=== PATIENT | male | born 1955 | race Caucasian/White ===

== ENCOUNTER 2018-05-08 13:39 | Inpatient (IN) ==
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
[2018-05-08 15:01] LABS: Baso % (Auto) 0.6 % (0.0-2.0); Eos # (Auto) 0.1 th/mm3 (0.0-0.4); Eos % (Auto) 1.8 % (0.0-4.0); Hematocrit 45.2 % (39.0-51.0); Hemoglobin 15.6 gm/dL (13.0-17.0); Lymph # (Auto) 1.2 th/mm3 (1.0-4.8); Lymph % (Auto) 15.1 % (9.0-44.0); Mean Corpuscular HGB Conc 34.5 % (32.0-36.0); Mean Corpuscular Hemoglobin 29.4 pg (27.0-34.0); Mean Corpuscular Volume 85.2 fL (80.0-100.0); Mean Platelet Volume 9.6 fL (7.0-11.0); Mono # (Auto) 0.6 th/mm3 (0.0-0.9); Mono % (Auto) 7.8 % (0.0-8.0); Neut # (Auto) 5.8 th/mm3 (1.8-7.7); Neut % (Auto) 74.7 % (16.0-70.0); Platelet Count 207 th/mm3 (150-450); Red Blood Count 5.31 mil/mm3 (4.50-5.90); Red Cell Distribution Width 14.2 % (11.6-17.2); White Blood Count 7.7 th/mm3 (4.0-11.0)
--- NOTE | 2018-05-08 15:08 | XR ---
EXAM DATE: 05/08/2018 2:53 PM EST AGE/SEX: 62 years / Male INDICATIONS: Patient presents with right sided chest pain and no history of cardiac issues. CLINICAL DATA: This is the patient's initial encounter. Patient reports that signs and symptoms have been present for 1 day and indicates a pain score of 6/10. MEDICAL/SURGICAL HISTORY: Hypertension. None. COMPARISON: No prior exams available for comparison. FINDINGS: Portable AP view of the chest demonstrates a normal-sized cardiac silhouette. No effusion, consolidat ion, or pneumothorax is identified. The bones and soft tissues demonstrate no acute finding. EKG line s overlie the patient. CONCLUSION: No acute cardiopulmonary abnormality is identified. Electronically signed by: Basilio Munguia MD Board Certified Radiologist 05/08/2018 3:07 PM EST
[2018-05-08 15:25] LABS: Alanine Aminotransferase 37 U/L (12-78); Albumin 3.7 g/dL (3.4-5.0); Anion Gap 8 meq/L (5-15); Blood Urea Nitrogen 13 mg/dL (7-18); Calcium 8.8 mg/dL (8.5-10.1); Carbon Dioxide 24.7 meq/L (21.0-32.0); Chloride 102 meq/L (98-107); Glomerular Filtration Rate 79 mL/min (>89); Glucose,Random 293 mg/dL (74-106); Lipase 112 U/L (73-393); Magnesium 1.9 mg/dL (1.5-2.5); Sodium 135 meq/L (136-145)
[2018-05-08 15:26] LABS: Aspartate Aminotransferase 31 U/L (15-37); Potassium 4.2 meq/L (3.5-5.1)
[2018-05-08 15:39] LABS: Alkaline Phosphatase 96 U/L (45-117); Creatine Kinase 230 U/L (39-308); Total Protein 7.6 g/dL (6.4-8.2); Troponin I 0.38 ng/mL (0.02-0.05)
--- NOTE | 2018-05-08 15:47 | CT ---
EXAM DATE: 05/08/2018 3:29 PM EST AGE/SEX: 62 years / Male INDICATIONS: Double vision. CLINICAL DATA: This is the patient's initial encounter. Patient reports that signs and symptoms have been present for 1 day and indicates a pain score of 0/10. MEDICAL/SURGICAL HISTORY: None. None. RADIATION DOSE: 56.35 CTDI (mGy) COMPARISON: No prior exams available for comparison. TECHNIQUE: CT of the head without contrast. Using automated exposure control and adjustment of the mA and/or kV according to patient size, radiation dose was kept as low as reasonably achievable to ob tain optimal diagnostic quality images. DICOM format image data is available electronically for revi ew and comparison. FINDINGS: Cerebrum: The ventricles are normal for age. No evidence of midline shift, mass lesion, hemorrhage or acute infarction. No extraaxial fluid collections are seen. Posterior Fossa: The cerebellum and brainstem are intact. The 4th ventricle is midline. The cerebe llopontine angle is unremarkable. Extracranial: The visualized portion of the orbits is intact. Skull: The calvaria is intact. No evidence of skull fracture. CONCLUSION: 1. Negative CT Head non contrast. Electronically signed by: Abhay Serrato MD Board Certified Radiologist 05/08/2018 3:46 PM EST
[2018-05-08 15:53] LABS: Creatine Kinase MB 3.9 ng/mL (0.5-3.6)
[2018-05-08] MEDS ORDERED: Bisacodyl 10 MG Supp RECTAL PRN (17:08)
[2018-05-08] MEDS ORDERED: Acetaminophen 325 MG Tablet PO PRN (17:08)
[2018-05-08] MEDS ORDERED: Dextrose 50% in Water 50 ML Vial IV.PUSH PRN (17:14)
[2018-05-08] MEDS ORDERED: Naloxone Inj 0.4 MG/ML Vial IV.PUSH PRN (18:19)
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
[2018-05-08] MEDS: Insulin NovoLOG Aspart Correctional Sugar Inj SQ SCH (21:54)
[2018-05-08] MEDS: Metoprolol Tartrate 25 MG Tablet PO SCH (23:04)
[2018-05-09] MEDS: Metoprolol Tartrate 25 MG Tablet PO SCH (09:15)
[2018-05-09] MEDS: Acetaminophen 325 MG Tablet PO PRN (09:22)
[2018-05-09] MEDS ORDERED: Acetaminophen 325 MG Tablet PO PRN (09:34)
[2018-05-09] MEDS ORDERED: Bisacodyl 10 MG Supp RECTAL PRN (09:34)
[2018-05-09] MEDS ORDERED: Gadobutrol PF 10 MMOL/10 ML Vial (for RAD) IV.SIG ONE (11:00)
--- NOTE | 2018-05-09 11:05 | MR ---
EXAM DATE: 05/09/2018 10:49 AM EST AGE/SEX: 62 years / Male INDICATIONS: . Diplopia. CLINICAL DATA: This is the patient's initial encounter. Patient reports that signs and symptoms have been present for 1 day and indicates a pain score of 0/10. MEDICAL/SURGICAL HISTORY: Diabetes mellitus type II. Hypertension. Tonsillectomy. COMPARISON: [facility] [place], CT HEAD W/O CONTRAST, 05/08/2018. . TECHNIQUE: Multiplanar, multisequence examination of the brain was performed without and with 10 ml G adavist (gadobutrol) contrast as a single exam dose. FINDINGS: Cerebrum: The ventricles are normal for age. No evidence of midline shift, mass lesion, hemorrhage or acute infarction. No extraaxial fluid collections are seen. The pituitary gland and suprasellar cistern are normal in configuration. White Matter: No significant signal abnormalities are seen in the white matter. Posterior Fossa: The cerebellum and brainstem are intact. The 4th ventricle is midline. The cerebel lopontine angle is unremarkable. The cerebellar tonsils are normal in position. Diffusion Imaging: No focal areas of restricted diffusion are seen. No evidence of acute infarction . Extracranial: The visualized portions of the orbits and paranasal sinuses are unremarkable. Post Contrast: No abnormal areas of parenchymal or dural enhancement. No evidence of blood-brain ba rrier breakdown. CONCLUSION: 1. Negative MR Brain with and without contrast. Electronically signed by: Abhay Serrato MD Board Certified Radiologist 05/09/2018 11:04 AM EST
[2018-05-09] MEDS ORDERED: Regadenoson Inj 0.4 MG/5 ML Syringe IV.PUSH ONE (11:44)
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
[2018-05-09] MEDS: Insulin NovoLOG Aspart Correctional Sugar Inj SQ SCH ×4 (13:01→20:16)
[2018-05-09] MEDS: Budesonide-Formoterol 160/4.5 MCG 6 GM Inhaler INH SCH ×2 (13:12→20:23)
[2018-05-09 13:36] LABS: Troponin I 0.5 ng/mL (0.02-0.05)
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
--- NOTE | 2018-05-09 16:40 | ECG ---
Date Performed: 05/08/2018 Time Performed: 14:02:21 PTAGE: 62 years EKG: SINUS TACHYCARDIA POSSIBLE LEFT ATRIAL ENLARGEMENT MODERATE ST DEPRESSION ABNORMAL ECG NO PREVIOUS TRACING DOCTOR: Carlos Cochran Interpretating Date/Time 05/09/2018 16:39:41
--- NOTE | 2018-05-09 16:49 | NM ---
EXAM DATE: 05/09/2018 4:37 PM EST AGE/SEX: 62 years / Male INDICATIONS:Angina. . Substernal chest pain. CLINICAL DATA: This is the patient's initial encounter. Patient reports that signs and symptoms have been present for 2 days and indicates a pain score of 3/10. MEDICAL/SURGICAL HISTORY: Hypertension. Diabetes mellitus type II. Asthma. Tonsillectomy. COMPARISON: No prior exams available for comparison. DOSE: 10 mCi Tc 99m Myoview at rest 30.1 mCi [id number] at stress 0.4 mg Lexiscan STRESS SYMPTOMS: None. EJECTION FRACTION: 67 % TECHNIQUE: The patient underwent pharmacologic stress with infusion of prescribed dose. Continuous ECG tracing was monitored during stress. Gated SPECT imaging was performed after stress and conventi onal SPECT imaging was performed at rest. The examination was performed on a SPECT/CT scanner, both attenuation and non-corrected datasets were reviewed. FINDINGS: Distribution: The maximum perfused segment at stress is in the septal wall. Perfusion Study: There is diminished perfusion along the lateral wall on the stress images. There a ppears to be some mild to moderate redistribution on the rest images along the lateral wall. Otherwis e, the rest of the perfusion images are grossly within normal limits. Gated Study: There are intact wall motion and wall thickening without hypokinetic or dyskinetic segm ents. The ejection fraction is calculated at 67%. RISK CATEGORY: Intermediate (1-3 % Annual Mortality Rate) CONCLUSION: 1. There appears to be some mild to moderate redistribution of tracer activity along the lateral wal l on the rest images suggesting ischemic myocardial changes. 2. No wall motion abnormalities are noted and the cardiac ejection fraction is within normal limits at 67%. Electronically signed by: Neri Aguirre MD Board Certified Radiologist 05/09/2018 4:48 PM EST
--- NOTE | 2018-05-09 17:23 | ECG ---
Date Performed: 05/08/2018 Time Performed: 18:21:32 PTAGE: 62 years EKG: Sinus rhythm MODERATE ST DEPRESSION Compared to previous tracing, sinus rate is slower ABNORMAL ECG PREVIOUS TRACING : 05/08/2018 14.02 DOCTOR: Carlso Cochran Interpretating Date/Time 05/09/2018 17:22:58
--- NOTE | 2018-05-09 17:38 | ECG ---
Date Performed: 05/08/2018 Time Performed: 21:11:10 PTAGE: 62 years EKG: Sinus rhythm MODERATE ST DEPRESSION Since the previous tracing, no significant change noted ABNORMAL ECG PREVIOUS TRACING : 05/08/2018 18.21 DOCTOR: Carlos Cochran Interpretating Date/Time 05/09/2018 17:37:33
--- NOTE | 2018-05-09 17:39 | ECG ---
Date Performed: 05/09/2018 Time Performed: 02:25:58 PTAGE: 62 years EKG: Sinus rhythm Inferior T wave changes are nonspecific Compared to previous tracing, previously seen ST changes are somewhat less prominent Borderline ECG PREVIOUS TRACING : 05/08/2018 21.11 DOCTOR: Carlos Cochran Interpretating Date/Time 05/09/2018 17:37:58
[2018-05-09] MEDS: Metoprolol Tartrate 50 MG Tablet PO SCH ×2 (18:20→20:15)
[2018-05-09] MEDS: amLODIPine 5 MG Tablet PO SCH (18:21)
[2018-05-09] MEDS: Isosorbide Mononitrate 60 MG ER 24HR Tablet (Imdur) PO SCH (18:22)
[2018-05-09] MEDS: Senna/Docusate Sodium 8.6/50 MG Tablet PO SCH (20:19)
[2018-05-09 20:53] LABS: Troponin I 0.38 ng/mL (0.02-0.05)
[2018-05-10 02:19] LABS: Baso # (Auto) 0.1 th/mm3 (0.0-0.2); Baso % (Auto) 0.9 % (0.0-2.0); Eos # (Auto) 0.2 th/mm3 (0.0-0.4); Hematocrit 41.7 % (39.0-51.0); Hemoglobin 14.3 gm/dL (13.0-17.0); Lymph # (Auto) 1.9 th/mm3 (1.0-4.8); Lymph % (Auto) 23.4 % (9.0-44.0); Mean Corpuscular HGB Conc 34.3 % (32.0-36.0); Mean Corpuscular Volume 84.5 fL (80.0-100.0); Mean Platelet Volume 9.2 fL (7.0-11.0); Mono # (Auto) 0.7 th/mm3 (0.0-0.9); Mono % (Auto) 8.8 % (0.0-8.0); Neut # (Auto) 5.2 th/mm3 (1.8-7.7); Neut % (Auto) 64.9 % (16.0-70.0); Platelet Count 224 th/mm3 (150-450); Red Blood Count 4.94 mil/mm3 (4.50-5.90)
[2018-05-10 02:48] LABS: Albumin 3.3 g/dL (3.4-5.0); Anion Gap 7 meq/L (5-15); Aspartate Aminotransferase 16 U/L (15-37); Blood Urea Nitrogen 17 mg/dL (7-18); Calcium 8.4 mg/dL (8.5-10.1); Carbon Dioxide 27.4 meq/L (21.0-32.0); Chloride 105 meq/L (98-107); Cholesterol 213 mg/dL (120-200); Glomerular Filtration Rate 89 mL/min (>89); Glucose,Random 238 mg/dL (74-106); Magnesium 2.1 mg/dL (1.5-2.5); Potassium 3.9 meq/L (3.5-5.1); Sodium 139 meq/L (136-145); Triglycerides 117 mg/dL (42-150)
[2018-05-10 02:57] LABS: Alanine Aminotransferase 27 U/L (12-78); Alkaline Phosphatase 79 U/L (45-117); Chol/HDL Ratio 5.66 Ratio; Creatine Kinase 119 U/L (39-308); Free T4 (Free Thyroxine) 1.09 ng/dL (0.76-1.46); HDL Cholesterol 37.6 mg/dL (40.0-60.0); LDL Cholesterol,Calculated 152 mg/dL (0-99); Phosphorus 3.7 mg/dL (2.5-4.9); Total Protein 6.5 g/dL (6.4-8.2); Troponin I 0.44 ng/mL (0.02-0.05)
[2018-05-10 08:08] VITALS: O2SAT 98
[2018-05-10 08:09] VITALS: RESP 17
[2018-05-10] MEDS: Insulin NovoLOG Aspart Correctional Sugar Inj SQ SCH ×2 (08:52→11:48)
[2018-05-10] MEDS: Acetaminophen 325 MG Tablet PO PRN (08:54)
[2018-05-10] MEDS: amLODIPine 5 MG Tablet PO SCH (08:56)
[2018-05-10] MEDS: Isosorbide Mononitrate 60 MG ER 24HR Tablet (Imdur) PO SCH (08:56)
[2018-05-10] MEDS: Senna/Docusate Sodium 8.6/50 MG Tablet PO SCH (08:56)
[2018-05-10] MEDS: Metoprolol Tartrate 50 MG Tablet PO SCH (08:57)
[2018-05-10] MEDS: Budesonide-Formoterol 160/4.5 MCG 6 GM Inhaler INH SCH (08:59)
[2018-05-10 11:37] VITALS: BP 125/63; TEMP 97.7
--- NOTE | 2018-05-10 14:05 | P.PNCA ---
Subjective Interval history: No left sided CP, dyspnea. Diplopia and lower right chest discomfort persist, no change. Medications and Allergies Active Medications: Active Medications Acetaminophen (Tylenol) 650 mg PO Q6HR PRN PRN Reason: PAIN SCALE 1 TO 5 Last Admin: 05/10/18 08:54 Dose: 650 mg Acetaminophen (Tylenol) 650 mg PO Q4H PRN PRN Reason: Temp > 100.4 Al Hydroxide/Mg Hydroxide (Milk Of Magnesia Liq) 30 ml PO Q12H PRN PRN Reason: Mild Constipation Albuterol (Ventolin Hfa Inh) 1 puff INH Q4H PRN PRN Reason: Respiratory Distress Last Admin: 05/09/18 20:15 Dose: 1 puff Amlodipine Besylate (Norvasc) 5 mg PO DAILY [facility] Last Admin: 05/10/18 08:56 Dose: 5 mg Aspirin (Ecotrin) 81 mg PO DAILY [facility] Last Admin: 05/10/18 08:57 Dose: 81 mg Bisacodyl (Dulcolax Supp) 10 mg RECTAL DAILY PRN PRN Reason: SEVERE CONSITIPATION Budesonide/Formoterol Fumarate (Symbicort 160/4.5 Mcg Inh) 2 puff INH BID [facility] Last Admin: 05/10/18 08:59 Dose: 2 puff Dextrose (D50w Vial) 50 ml IV.PUSH UNSCH PRN PRN Reason: PER HYPOGLYCEMIA PROTOCOL Diphenhydramine HCl (Benadryl) 25 mg PO HS PRN PRN Reason: INSOMNIA Last Admin: 05/09/18 20:15 Dose: 25 mg Enalaprilat (Vasotec Inj) 1.25 mg IV.PUSH Q6H PRN PRN Reason: SEE LABEL COMMENTS Last Admin: 05/09/18 17:43 Dose: 1.25 mg Glucagon (Glucagon Inj) 1 mg OTHER PRN PRN PRN Reason: for Hypoglycemia Protocol Insulin Aspart (Novolog Insulin Correctional Sugar Inj) 0 unit SQ [facility]; Protocol Last Admin: 05/10/18 11:48 Dose: 3 unit Isosorbide Mononitrate (Imdur) 60 mg PO DAILY [facility] Last Admin: 05/10/18 08:56 Dose: 60 mg Lactulose (Lactulose Liq) 30 ml PO DAILY PRN PRN Reason: SEVERE CONSITIPATION Losartan Potassium (Cozaar) 50 mg PO DAILY [facility] Last Admin: 05/10/18 08:56 Dose: 50 mg Metoprolol Tartrate (Lopressor) 50 mg PO BID [facility] Last Admin: 05/10/18 08:57 Dose: 50 mg Naloxone HCl (Narcan Inj) 0.4 mg IV.PUSH UNSCH PRN PRN Reason: SEE LABEL COMMENTS Ondansetron HCl (Zofran Inj) 4 mg IV.PUSH Q6H PRN PRN Reason: NAUSEA OR VOMITING Pantoprazole Sodium (Protonix) 40 mg PO DAILY [facility] Last Admin: 05/10/18 08:56 Dose: 40 mg Senna/Docusate Sodium (Jewell-Colace) 1 tab PO BID [facility] Last Admin: 05/10/18 08:56 Dose: Not Given Sennosides (Senokot) 17.2 mg PO Q12H PRN PRN Reason: Moderate Constipation Sodium Chloride (Ns Flush) 2 ml IV.FLUSH PRN PRN PRN Reason: FLUSH AFTER USING IV ACCESS Sodium Chloride (Ns Flush) 2 ml IV.FLUSH BID [facility] Last Admin: 05/10/18 08:57 Dose: 2 ml Tramadol HCl (Ultram) 50 mg PO Q4H PRN PRN Reason: PAIN SCALE 6 TO 10 Allergies Allergy/AdvReac Type Severity Reaction Status Date / Time Penicillins Allergy Shortness Verified 05/08/18 13:54 of Breath Home Medications Medication Instructions Recorded Confirmed Type albuterol sulfate [ProAir HFA] 1 puff INHALATION Q4-6H PRN 05/08/18 05/08/18 History aspirin [Aspirin Low Dose] 81 mg PO DAILY 05/08/18 05/08/18 History esomeprazole magnesium [Nexium] 40 mg PO DAILY 05/08/18 05/08/18 History fluticasone-salmeterol [Advair 1 inh INHALATION BID 05/08/18 05/08/18 History Diskus] sitagliptin-metformin [Janumet] 1 tab PO BID 05/08/18 05/08/18 History valsartan 160 mg PO DAILY 05/08/18 05/08/18 History Physical Exam Vital signs: Vital Signs 05/09/18 14:00 05/09/18 17:33 05/09/18 17:49 Temperature 97.7 F Pulse Rate 80 89 Respiratory Rate 16 Blood Pressure 169/100 H 166/89 H Pulse Oximetry 96 05/09/18 18:11 05/09/18 20:00 05/09/18 21:00 Temperature 98 F Pulse Rate 87 69 71 Respiratory Rate 16 20 Blood Pressure 159/93 H 150/89 H Pulse Oximetry 86 L 96 05/09/18 21:46 05/09/18 22:00 05/09/18 23:00 Temperature Pulse Rate 70 68 Respiratory Rate Blood Pressure Pulse Oximetry 99 05/09/18 23:41 05/09/18 23:43 05/10/18 01:00 Temperature 98.2 F 98.2 F Pulse Rate 65 65 62 Respiratory Rate 18 18 Blood Pressure 110/63 110/63 Pulse Oximetry 95 95 05/10/18 02:00 05/10/18 03:00 05/10/18 04:00 Temperature 98.4 F Pulse Rate 60 63 60 Respiratory Rate 18 Blood Pressure 115/72 Pulse Oximetry 94 L 05/10/18 05:00 05/10/18 05:55 05/10/18 08:07 Temperature 98 F Pulse Rate 62 61 70 Respiratory Rate 17 Blood Pressure 127/68 Pulse Oximetry 98 05/10/18 08:08 05/10/18 11:35 Temperature 97.7 F Pulse Rate 68 Respiratory Rate 17 Blood Pressure 125/63 Pulse Oximetry 98 98 Intake & Output 05/09/18 05/10/18 05/10/18 18:59 06:59 18:59 Intake Total 720 / 720 480 / 480 Output Total 900 / 900 800 / 800 Balance -180 / -180 -320 / -320 Weight 101.4 kg Intake: Oral 720 / 720 480 / 480 Output: Urine 900 / 900 800 / 800 Other: Date of Last Bowel Movement 05/09/18 05/10/18 # Bowel Movements 1 1 Results 05/10/18 02:06 05/10/18 02:06 Cardiac Enzymes 05/08/18 05/08/18 05/09/18 Range/Units 14:35 17:30 00:22 AST 31 (15-37) U/L CK-MB (CK-2) 3.9 H (0.5-3.6) ng/mL Troponin I 0.38 H 0.44 H 0.67 H* (0.02-0.05) ng/mL 05/09/18 05/09/18 05/10/18 Range/Units 12:36 20:16 02:06 AST 16 (15-37) U/L CK-MB (CK-2) (0.5-3.6) ng/mL Troponin I 0.50 H 0.38 H 0.44 H (0.02-0.05) ng/mL Lipids 05/10/18 Range/Units 02:06 Triglycerides 117 (42-150) mg/dL Cholesterol 213 H (120-200) mg/dL HDL Cholesterol 37.6 L (40.0-60.0) mg/dL Cholesterol/HDL Ratio 5.66 Ratio CBC 05/08/18 05/10/18 Range/Units 14:35 02:06 WBC 7.7 8.0 (4.0-11.0) th/mm3 RBC 5.31 4.94 (4.50-5.90) mil/mm3 Hgb 15.6 14.3 (13.0-17.0) gm/dL Hct 45.2 41.7 (39.0-51.0) % Plt Count 207 224 (150-450) th/mm3 Neut # (Auto) 5.8 5.2 (1.8-7.7) th/mm3 Lymph # (Auto) 1.2 1.9 (1.0-4.8) th/mm3 [place] # (Auto) 0.6 0.7 (0.0-0.9) th/mm3 Eos # (Auto) 0.1 0.2 (0.0-0.4) th/mm3 Baso # (Auto) 0.0 0.1 (0.0-0.2) th/mm3 Comprehensive Metabolic Panel 05/08/18 05/10/18 Range/Units 14:35 02:06 Sodium 135 L 139 (136-145) meq/L Potassium 4.2 3.9 (3.5-5.1) meq/L Chloride 102 105 (98-107) meq/L Carbon Dioxide 24.7 27.4 (21.0-32.0) meq/L BUN 13 17 (7-18) mg/dL Creatinine 0.97 0.87 (0.60-1.30) mg/dL Calcium 8.8 8.4 L (8.5-10.1) mg/dL AST 31 16 (15-37) U/L ALT 37 27 (12-78) U/L Alkaline Phosphatase 96 79 (45-117) U/L Total Protein 7.6 6.5 D (6.4-8.2) g/dL Albumin 3.7 3.3 L (3.4-5.0) g/dL Intake and Output 05/09/18 05/10/18 05/10/18 22:59 06:59 14:59 Intake Total 720 / 720 480 / 480 Output Total 900 / 900 800 / 800 Balance -180 / -180 -320 / -320 Intake: Oral 720 / 720 480 / 480 Output: Urine 900 / 900 800 / 800 Other: Date of Last Bowel Movement 05/09/18 05/10/18 # Bowel Movements 1 1 Weight 101.4 kg - Imaging and Cardiology Imaging: Impressions Head CT 05/08/18 14:20 CONCLUSION: 1. Negative CT Head non contrast. Chest X-Ray 05/08/18 14:21 CONCLUSION: No acute cardiopulmonary abnormality is identified. Head MRI 05/09/18 00:00 CONCLUSION: 1. Negative MR Brain with and without contrast. Myocardial Perfusion Scan Nuc Med 05/09/18 00:00 CONCLUSION: 1. There appears to be some mild to moderate redistribution of tracer activity along the lateral wall on the rest images suggesting ischemic myocardial changes. 2. No wall motion abnormalities are noted and the cardiac ejection fraction is within normal limits at 67%. Assessment and Plan - Assessment (1) Elevated troponin Code(s): R74.8 - Abnormal levels of other serum enzymes Status: Acute Plan: Stable overnight. Patient has never had any angina like symptoms. Nonetheless troponin levels checked, slightly abnormal, possibly was from elevations in BP' s on admission. Nuclear stress test images reviewed, agree with the interpretation. There appears to be moderate lateral wall ischemia. In light of their need to drive 1000 miles back home I have overall recommended cardiac cath Saturday over treating his probable CAD medically. He prefers to be discharged home today with close f/u with crossing gateman near home. He understands small possibility of acute [place] and bad outcome en route back home. I have encouraged him to look into flying back home instead. Scripts for current medications written, stressed need to fill them today. (2) Hypertension Code(s): I10 - Essential (primary) hypertension Status: Chronic Plan: BP's much better. Now normotensive. - Plan Code Status: full Discussed Condition With: patient and family at length (2) Hypertension Qualifiers: Hypertension type: essential hypertension Qualified Code(s): I10 - Essential (primary) hypertension
[2018-05-10 14:50] VITALS: PULSE 76
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
--- NOTE | 2018-05-12 13:09 | ECHRPT ---
Indication: HYPERTENSIVE HEART DISEASE CONCLUSIONS Normal left ventricular size. Wall thickness is normal. The left ventricular systolic function is normal with an estimated ejection fraction in the range of 55-60%. No regional wall motion abnormalities are present. Trace mitral valve regurgitation. The aortic valve is not well visualized. There is trace tricuspid valve regurgitation. The estimated pulmonary arterial pressure is 33 mm Hg . BP: / HR: Rhythm: MEASUREMENTS (Male / Female) Normal Values Technical Quality: 2D ECHO LV Diastolic Diameter PLAX 4.8 cm 4.2 - 5.9 / 3.9 - 5.3 cm LV Systolic Diameter PLAX 3.5 cm IVS Diastolic Thickness 0.9 cm 0.6 - 1.0 / 0.6 - 0.9 cm LVPW Diastolic Thickness 0.9 cm 0.6 - 1.0 / 0.6 - 0.9 cm LV Relative Wall Thickness 0.4 RV Internal Dim ED PLAX 3.3 cm LVOT Diameter 1.9 cm Aortic Root Diameter 2.9 cm M-MODE AV Cusp Separation MM 2.1 cm DOPPLER AV Peak Velocity 125.0 cm/s AV Peak Gradient 6.3 mmHg LVOT Peak Velocity 90.8 cm/s LVOT Peak Gradient 3.3 mmHg AV Area Cont Eq pk 2.1 cm Mitral E Point Velocity 76.0 cm/s Mitral A Point Velocity 66.1 cm/s Mitral E to A Ratio 1.1 LV E' Lateral Velocity 7.6 cm/s Mitral E to LV E' Lateral Ratio 10.0 LV E' Septal Velocity 6.8 cm/s Mitral E to LV E' Septal Ratio 11.1 TR Peak Velocity 238.0 cm/s TR Peak Gradient 22.7 mmHg Right Atrial Pressure 10.0 mmHg Pulmonary Artery Systolic Pressu 32.7 mmHg Right Ventricular Systolic Press 32.7 mmHg PV Peak Velocity 126.0 cm/s PV Peak Gradient 6.4 mmHg FINDINGS LEFT VENTRICLE Normal left ventricular size. Wall thickness is normal. The left ventricular systolic function is normal with an estimated ejection fraction in the range of 55-60%. No regional wall motion abnormalities are present. RIGHT VENTRICLE Normal right ventricular size and systolic function. LEFT ATRIUM The left atrial size is normal. RIGHT ATRIUM The right atrial size is normal. ATRIAL SEPTUM Normal atrial septal thickness without atrial level shunting by limited color doppler interrogation. AORTA The aortic root and proximal ascending aorta are normal in size on limited imaging. MITRAL VALVE Trace mitral valve regurgitation. AORTIC VALVE The aortic valve is not well visualized. TRICUSPID VALVE There is trace tricuspid valve regurgitation. The estimated pulmonary arterial pressure is 33 mm Hg. PULMONARY VALVE No pulmonary valve regurgitation or stenosis. VESSELS The inferior vena cava is normal in size. PERICARDIUM No pericardial effusion. Aly Zimmer MD (Electronically Signed) Final Date:12 May 2018 13:08
== END 2018-05-10 15:50 | disposition home or self-care (01) | DRG 282 ==
LOC: NEPC 13:39 → NEDA 17:22 → HCIS 22:19
PROVIDERS: ADMIT Hospitalist; ATTEND Hospitalist
CPT/HCPCS: 70450; 70553; 71010; 71045; 78452; 80053; 80061; 82550; 82552; 82948; 82962; 83036; 83690; 83735; 84100; 84439; 84443; 84484; 85025; 85379; 90774; 90784; 93005; 93017; 93306; 94150; 96374; 97161; 97166; 99285; A9502; A9585; C8952; J1815; J2405; J2785